=== PATIENT | female | born 1960 | race Caucasian/White ===

== ENCOUNTER → 2016-12-12 | Outpatient (CLI) | payer MEDICARE, MEDICAID ==
[~2016-12-12] MED LIST: ALDACTONE25 MG PO; ATIVAN 0.5MG0.5 MG PO; CEFAZOLIN SODIUM1 GM IVP; COLACE100 MG PO; COREG12.5 MG PO; CYMBALTA30 MG PO; CYMBALTA60 MG PO; FLEXERIL10 MG PO; GLUCOPHAGE500 MG PO; HEPARIN IVP; IBUPROFEN800 MG PO; K-TAB 10MEQ10 MEQ PO; K-TAB ER20 MEQ PO; KEFLEX500 MG PO; LANTUS (IN100 UNIT/M SUB-Q; LASIX20 MG PO; LEVOTHROID (SY50 MCG PO; LIPITOR10 MG PO; LYRICA 100MG C100 MG PO; LYRICA 150MG C150 MG PO; LYRICA300 MG PO; MAG-OX-400(241400 MG PO; MIRALAX17 GM PO; MORPHINE SULFAT30 M4 PO; MORPHINE SULFAT30 MG PO; MOTRIN600 MG PO; MUCINEX DM ER1 EAC1 PO; NICODERM / HABIT7 MG TRANS; NORCO 10-325 T1 EACH PO; NORMAL SALINE FL5 ML IVP; NORVASC5 MG PO; NOVOLOG100 UNIT/M SUB-Q; PRINIVIL OR ZES10 MG PO; PROVENTIL OR V6.7 GM INH; SODIUM CHLORID IV; XANAX1 MG PO
== END ==
LOC: LNHI 17:09
DX: I50.9 Heart failure, unspecified (principal)